=== PATIENT | female | born 1975 | race Caucasian/White ===

== ENCOUNTER 2017-09-29 21:47 | Emergency (ER) | payer OTHER ==
[~2017-09-29] VITALS: Ht 165.1 cm; Wt 65.0 kg
[~2017-09-29 21:47] MED LIST: DEXT15TA PO; LEXA20TA PO; NAPR500 PO; PRED50 PO
[2017-09-29 22:10] VITALS: BP 112/55; PULSE 75; RESP 18; TEMP 98; O2SAT 99
[2017-09-29] MEDS ORDERED: HYDR-3583 (22:30)
[2017-09-29] MEDS ORDERED: SODIUM CHLOR 0.9% 1000 ML INJ 1,000 ML IV ONE (22:37)
[2017-09-29] MEDS ORDERED: SODIUM CHLORIDE 0.9% FLUSH 10 ML FLUSH IVF PRN (22:45)
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
[2017-09-29 23:27] LABS: AUTOMATED NEUTROPHIL # 5.1 TH/MM3 (1.8-7.7); BASOPHIL % 0.4 % (0.0-2.0); BILIRUBIN, URINE NEG (NEG); BLOOD, URINE MOD (NEG); EOSINOPHIL # 0.2 TH/MM3 (0-0.4); GLUCOSE,URINE NEG (NEG); HEMATOCRIT 37.5 % (35.0-46.0); HEMOGLOBIN 12.5 GM/DL (11.6-15.3); KETONE, URINE NEG (NEG); LYMPH % 24.3 % (9.0-44.0); LYMPHOCYTE # 1.9 TH/MM3 (1.0-4.8); MEAN CELL VOLUME 83.2 FL (80.0-100.0); MEAN CORPUSCULAR HEMOGLOBIN 27.8 PG (27.0-34.0); MEAN CORPUSCULAR HGB CONC 33.4 % (32.0-36.0); MEAN PLATELET VOLUME 8.6 FL (7.0-11.0); MONO % 7.7 % (0.0-8.0); MONOCYTE # 0.6 TH/MM3 (0-0.9); MUCUS URINE FEW /lpf (OCC); NEUT % 64.6 % (16.0-70.0); NITRITE,URINE NEG (NEG); PH, URINE 6.5 (5.0-8.5); PLATELET COUNT 243 TH/MM3 (150-450); RED BLOOD COUNT 4.51 MIL/MM3 (4.00-5.30); RED CELL DISTRIBUTION WIDTH 15.9 % (11.6-17.2); SQUAMOUS EPITHELIAL CELL URINE 4 /hpf (0-5); URINE COLOR YELLOW (YELLW/STRAW); URINE LEUKOCYTE ESTERASE SMALL (NEG); WHITE BLOOD COUNT 7.8 TH/MM3 (4.0-11.0)
[2017-09-29 23:39] LABS: ALBUMIN 3.4 GM/DL (3.4-5.0); ALT (GPT) 26 U/L (10-53); AST (GOT) 20 U/L (15-37); BICARBONATE 24.6 MEQ/L (21.0-32.0); BLOOD UREA NITROGEN 8 MG/DL (7-18); CALCIUM 8.8 MG/DL (8.5-10.1); CHLORIDE 105 MEQ/L (98-107); GLOMERULAR FILTRATION RATE 111 ML/MIN (>89); GLUCOSE,RANDOM 99 MG/DL (74-106); SODIUM (NA) 140 MEQ/L (136-145)
[2017-09-29 23:56] LABS: ALKALINE PHOSPHATASE 105 U/L (45-117); TOTAL BILIRUBIN ADULT 0.3 MG/DL (0.2-1.0)
--- NOTE | 2017-09-30 00:20 | RADRPT ---
EXAM DATE: 09/30/2017 12:11 AM EDT AGE/SEX: 42 years / Female INDICATIONS: Vaginal bleeding with . CLINICAL DATA: This is the patient's initial encounter. Patient reports that signs and symptoms have been present for 1 day and indicates a pain score of 0/10. MEDICAL/SURGICAL HISTORY: . section. COMPARISON: No prior exams available for comparison. MEASUREMENTS: Uterus:__12.4 x 6.0 x 5.5 cm Endometrial Stripe:__20 mm Right Ovary:__ Not visualized Left Ovary:__ 2.2 x 1.6 x 1.5 cm FINDINGS: Uterus: The myometrium has homogeneous echotexture without mass. There does appear to be a gestation al sac within the lower uterine segment. Normal heart tones can not be identified. Right Ovary: Not visualized. Left Ovary: Ovary measures 2.2 x 1.6 x 1.5 cm. Other: No free fluid. CONCLUSION: 1. The right ovary is not visualized. 2. The gestational sac is within the lower uterine segment without any identifiable heart tones. Electronically signed by: Roosevelt Holbrook MD 09/30/2017 12:19 AM EDT
== END 2017-09-30 01:31 | disposition home or self-care (01) ==
LOC: NEPE 21:47
DX: O03.4 Incomplete spontaneous abortion without complication (principal); Z3A.01 Less than 8 weeks gestation of pregnancy; Z72.0 Tobacco use
CPT/HCPCS: 76700; 80053; 81001; 84702; 84703; 85025; 86850; 86900; 86901; 96360; 96361; 99284; J7030